=== PATIENT | male | born 2000 | race Hispanic/Latino ===

== ENCOUNTER 2024-04-10 21:36 | Emergency (ER) | payer SELFPAY ==
--- NOTE | ~2024-04-10 | XR_ITS ---
XR finger 1st LT min 2V Ordering provider: Emily Espino MD History: . trauma . Comparison: None. FINDINGS: BONES: No acute fracture or dislocation. JOINT SPACES: Normal. SOFT TISSUES: Normal. IMPRESSION: No acute osseous abnormality. Reviewed, dictated and finalized at location A.
[2024-04-10 21:38] VITALS: BP 149/81; PULSE 74; RESP 15; TEMP 36.4; O2SAT 99
--- NOTE | 2024-04-10 22:44 | ED.WOUNDLAC ---
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 He reports after a laceration he was unable to stop the bleeding. Patient denies pain in that left from but endorses numbness. He does not know when he last had a tetanus vaccine. Patient denies any other medical history pertinent to this ER visit. He endorses full range of motion in his PIP and DIP. Related Data Allergies Allergy/AdvReac Type Severity Reaction Status Date / Time No Known Allergies Allergy Verified 04/10/24 21:42 Review of Systems Review of Systems: All systems reviewed & are unremarkable except as noted in HPI and below Exam Narrative: GENERAL: Well appearing, well-nourished, non-toxic, in no acute distress. HEAD: Normocephalic, atraumatic. NECK: Supple. No adenopathy, no masses. RESPIRATORY: Airway patent, respirations nonlabored. Clear to auscultation bilaterally, no rales, rhonchi, wheezing. CARDIOVASCULAR: Regular rate and rhythm without murmurs, rubs, or gallops. Peripheral pulses 2+ and equal bilaterally. ABDOMINAL: Soft, nontender, nondistended, no hepatosplenomegaly. Normoactive BS. MUSCULOSKELETAL: Moves all extremities. Strength/ROM intact without gross deformities. SKIN: Warm, dry, normal color. No rashes. Patient has approximately 4 cm long arch-shaped laceration on his left lateral 1st digit. NEURO: A&O X3. Speech clear. Cranial nerves II-XII grossly intact. Steady gait. No ataxic movements. PSYCHIATRIC: Appropriate mood and affect. Normal interaction. Course Vital Signs Vital signs: Vital Signs Temperature 36.4 C 04/10/24 21:38 Pulse Rate 74 04/10/24 21:38 Respiratory Rate 15 04/10/24 21:38 Blood Pressure 149/81 H 04/10/24 21:38 Pulse Oximetry 99 04/10/24 21:38 Oxygen Delivery Room Air 04/10/24 21:38 Temperature 36.4 C 04/10/24 21:38 Pulse Rate 74 04/10/24 21:38 Respiratory Rate 15 04/10/24 21:38 Blood Pressure 149/81 H 04/10/24 21:38 Pulse Oximetry 99 04/10/24 21:38 Oxygen Delivery Room Air 04/10/24 21:38 Procedures Laceration Laceration 1: Date: 04/11/24 Time: 00:10 Site: hand Side (If applicable): left Size (cm): 4 Description: flap Depth: simple, single layer Local Anesthetic: lidocaine 1% Amount of anesthesia used (mL): 9 Pre-repair: irrigated extensively and wound margins revised ====== Skin Level ====== Skin layer closed with: nylon Size (cm): 4-0 Number of sutures: 10 Technique: simple, interrupted ====== Subcutaneous Layer ====== ====== Muscle Layer ====== ====== Tendon Layer ====== MDM - Wound/Laceration MDM Narrative Medical decision making narrative: Patient is a 24-year-old male who presents to the ER with a laceration on his left hand that occurred 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 He reports after a laceration he was unable to stop the bleeding. Patient denies pain in that left from but endorses numbness. He does not know when he last had a tetanus vaccine. Patient denies any other medical history pertinent to this ER visit. He endorses full range of motion in his PIP and DIP. Upon examination, patient has an approximately 4 cm long arch-shaped laceration on his left lateral 1st digit. Wound was extensively irrigated with saline. Approximately 9 mL of lidocaine 1% was injected into the 1st digit to help with numbness prior to laceration repair. Ten 4.0 Ethilon sutures were placed to close patient's wound. Bleeding was controlled post-suturing. 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
[2024-04-10] MEDS: LIDOCAINE HCL 1% LOCAL INJ 10 ML VIAL 20 ML INFILTRATE (22:55)
[2024-04-10] MEDS: HYDROcodone/acetaminophen (*CRX) 5-325 MG TABLET 1 TAB PO (22:55)
[2024-04-10] MEDS: TETANUS,DIPHTHERIA,AC PERTUSSIS ADULT (0.5 ML) BOOSTRIX IM (22:56)
[2024-04-11] MEDS: HYDROcodone/acetaminophen (*CRX) 5-325 MG TABLET 1 TAB PO (01:05)
[2024-04-11 01:19] VITALS: BP 133/72; PULSE 72; RESP 14; O2SAT 100
== END 2024-04-11 01:20 | disposition home or self-care (01) ==
PROVIDERS: Emergency Provider Registered Nurse
DX: S61.012A Laceration without foreign body of left thumb without damage to nail, initial encounter (principal); Z23 Encounter for immunization; W26.0XXA Contact with knife, initial encounter; Y93.G1 Activity, food preparation and clean up
CPT/HCPCS: 12002; 73140; 90471; 90715; 96375; 99283; A9270; J2003

== ENCOUNTER 2024-04-20 14:14 | Emergency (ER) | payer SELFPAY ==
[2024-04-20 14:17] VITALS: BP 126/105; PULSE 91; RESP 16; TEMP 36.6; O2SAT 96
--- NOTE | 2024-04-20 14:28 | ED.SKABFB ---
HPI - Skin/Abscess/Foreign Bdy General Chief complaint: Skin/Abscess/Foreign Body Stated complaint: suture removal Limitations: language barrier History of Present Illness HPI narrative: Patient is a 24-year-old male who presents to the ER to have the stitches in his left hand removed. He denies pain in his left 1st digit, along with signs or symptoms of infection. Patient does endorse some numbness around his DIP joint. he denies any pertinent medical history or other signs/symptoms of illness at this time. Related Data Allergies Allergy/AdvReac Type Severity Reaction Status Date / Time No Known Allergies Allergy Verified 04/10/24 21:42 Review of Systems Review of Systems: All systems reviewed & are unremarkable except as noted in HPI and below Exam Narrative: GENERAL: Well appearing, well-nourished, non-toxic, in no acute distress. HEAD: Normocephalic, atraumatic. NECK: Supple. No adenopathy, no masses. RESPIRATORY: Airway patent, respirations nonlabored. Clear to auscultation bilaterally, no rales, rhonchi, wheezing. CARDIOVASCULAR: Regular rate and rhythm without murmurs, rubs, or gallops. Peripheral pulses 2+ and equal bilaterally. ABDOMINAL: Soft, nontender, nondistended, no hepatosplenomegaly. Normoactive BS. MUSCULOSKELETAL: Moves all extremities. Strength/ROM intact without gross deformities. SKIN: Warm, dry, normal color. No rashes. Ten stitches placed in L thumb. Area dry and intact without signs/symptoms of infection. NEURO: A&O X3. Speech clear. Cranial nerves II-XII grossly intact. Steady gait. No ataxic movements. PSYCHIATRIC: Appropriate mood and affect. Normal interaction. 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 Stitches came out easily. Patient advised to keep the area clean and dry. He may put antibiotic cream on it twice a day and should keep the site covered. Cleaner Window used to relay message to patient. Patient verbalizes understanding via wax pattern coater. Differential Diagnosis Differential diagnosis: Likely cellulitis, contact dermatitis and other (stitches removal ) Discharge Plan Discharge Clinical Impression: Encounter for removal of sutures Patient Disposition: Home, Self-Care Condition: Stable Instructions: Antibiotic Form, Stitches Removal (ED) Additional Instructions: You may allow water and soap to run over your wound, but please do not scrub the area. Return to the ER with any concerning symptoms. Please establish care with a primary care provider. Patient Language: Bol[place]ian Follow-up/Referrals: UNKNOWN,DOCTOR [Primary Care Provider] - Rolando Hooker MD [Physician] - Stand Alone Forms: Work/School Release IP Time of Disposition: 14:39
== END 2024-04-20 14:46 | disposition home or self-care (01) ==
PROVIDERS: Emergency Provider Registered Nurse
DX: Z48.02 Encounter for removal of sutures (principal)
CPT/HCPCS: 15853; 99281